=== PATIENT | female | born 1950 | race African-American/Black ===

== ENCOUNTER 2018-06-04 23:03 | Observation (INO) | payer MEDICARE, OTHER, SELFPAY ==
--- NOTE | 2018-06-04 00:35 | RAD_ITS ---
STUDY: X-RAY CHEST REASON FOR EXAM: Female, 67 years old. Altered level of consciousness TECHNIQUE: Single AP portable view of the chest. COMPARISON: None. FINDINGS: There is hyperinflation of the lungs consistent with chronic obstructive lung disease (COPD). There is no focal parenchymal abnormality. There is no demonstrated pleural abnormality. Normal size heart. Normal mediastinum and bindu. Normal visualized pulmonary arteries. Normal visualized aortic arch and descending thoracic aorta. Normal visualized thoracic spine. Normal visualized ribs, clavicles, and shoulders. There is no demonstrated abnormality of the visualized soft tissue structures of the upper abdomen. RAD/Chest 1 View (Portable) IMPRESSION: COPD. No pulmonary edema, congestive heart failure or confluent pneumonia. Electronically Signed: Sara Pérez MD at 0:54 EDT , Service support ,
[2018-06-04 23:08] VITALS: BP 142/63; PULSE 80; RESP 16; TEMP 36.8; O2SAT 99; BMI 23.5
--- NOTE | 2018-06-04 23:33 | ED.RN ---
S.O. WAS WITH PATIENT ON ARRIVAL TO HOSPITAL. PT WAS A MISSING PERSON IN [facility]. KYRIE ASNTIAGO IS ON HER WAY UP FROM [facility] TO SEE HER
--- NOTE | 2018-06-04 23:41 | CT_ITS ---
STUDY: CT BRAIN WITHOUT CONTRAST REASON FOR EXAM: Female, 67 years old. Altered mental status RADIATION DOSAGE (If Supplied By Facility): CTDIvol = ( 44.99 ) mGy, DLP = ( 812.98 ) mGycm TECHNIQUE: Transaxial CT imaging of the brain was performed without administration of intravenous contrast material. Individualized dose optimization techniques were used for this CT. COMPARISON: No relevant priors. FINDINGS: Normal soft tissue structures. Normal calvarium. There is mild cerebral atrophy with widening of the extra-axial spaces and ventricular dilatation. There are areas of decreased attenuation within the white matter tracts of the supratentorial brain, consistent with microvascular disease changes. Normal basal ganglia and thalami. Normal brainstem. Normal cerebellum. There is no intracranial hemorrhage. There are no findings of an acute ischemic infarction. Normal visualized paranasal sinuses. CT/Brain/Head without Contrast IMPRESSION: Chronic involutional changes of the brain. There is no acute intracranial pathology. Electronically Signed: Sara Pérez MD at 2:37 EDT , Service support ,
[2018-06-05 00:29] LABS: Mucous, Urine 0 SEEN /hpf (<or=2+); Red Blood Cells-Urine 0 SEEN /hpf (0-5)
[2018-06-05 00:33] LABS: Absolute Lymphocyte Count 1.76 X10^3/ul (0.83-4.51); Absolute Neutrophil Count 7.2 X10^3/uL (2.0-7.7); Basophil# 0.06 X10^3/uL; Basophil% 0.6 % (0-1); Eosinophil# 0.03 X10^3/uL; Eosinophils% 0.3 % (0-5); Hematocrit 45.3 % (37-47); Hemoglobin 14.7 g/dl (12.0-15.0); Lymphocyte # 1.76 X10^3/ul (4.0); Lymphocyte % 17.4 % (19-41); Mean Corp Hgb Conc 32.5 g/gl (32-36); Mean Corpuscular Hgb 29.6 pg (27.0-32.0); Mean Corpuscular Volume 91.3 fL (81-99); Mean Platelet Vol. 9.6 fl (6.2-12.0); Monocyte# 1.03 X10^3/uL; Monocyte% 10.2 % (0-10); Neutrophil # 7.19 X10^3/uL (2.7-7.7); Neutrophil % 70.9 % (47-70); Platelet Count 379 K/mm3 (150-450); RBC Distribution Width CV 13.5 % (11.6-14.6); RBC Distribution Width SD 44.5 fl (35.1-43.9); Red Blood Count 4.96 M/mm3 (4.2-5.4); White Blood Count 10.1 K/mm3 (4.4-11.0)
[2018-06-05 00:36] LABS: POSITIVE COUNT NO; POSITIVE DIFFERENTIAL NO; POSITIVE MORPHOLOGY NO
--- NOTE | 2018-06-05 00:36 | ED.RN ---
PT STATES SHE REFUSES A CT SCAN DUE TO NOT KNOWING IF INSURANCE WILL COVER IT SINCE SHE CANNOT PAY FOR IT. THE PT WAS INFORMED THAT IT WAS DETERMINED BY THE DOCTOR THAT SHE CANNOT MAKE HER OWN MEDICAL DECISIONS DUE TO THE SERIES OF EVENTS THAT TRANSPIRED IN THE LAST 3 DAYS. THE PHYSICIAN SPOKE WITH HER FAMILY AND NOTIFIED OF HER CONDITION.
[2018-06-05 00:41] LABS: Color, Urine Yellow (Yellow); Glucose, Dipstick 50 mg/dl (Normal); Ketone-Dipstick 50 mg/dl (Negative); Leukocyte Esterase-Dipstick 25 /ul (Negative); Nitrite-Dipstick Negative (Negative); Occult Blood-Urine Negative /ul (Negative); Protein-Dipstick 15 mg/dl (Negative); Specific Gravity, Urine 1.015 (1.002-1.030); Urine Bilirubin Dipstick Negative (Negative); Urine Clarity Clear (Clear); Urine Urobilinogen Normal (Normal)
[2018-06-05 00:46] LABS: Amphetamine Urine VISTA NEGATIVE (<1000 ng/mL); Barbiturate Urine VISTA NEGATIVE (< 200 ng/mL); Benzodiazepine Urine VISTA NEGATIVE (< 200 ng/mL); Cocaine Urine VISTA NEGATIVE (< 300 ng/mL); Ecstacy Urine VISTA NEGATIVE (< 500 ng/mL); Methadone Urine VISTA NEGATIVE (< 300 ng/mL); PCP Urine VISTA NEGATIVE (< 25 ng/mL); THC Urine VISTA NEGATIVE (< 50 ng/mL); Vista UDS pH Range 6
[2018-06-05 00:47] LABS: Bacteria RARE /hpf (None Seen); Squamous Epithelial Cells - UA 0-5 SEEN /hpf (5-10); White Blood Cells 0-5 SEEN /hpf (0-5)
[2018-06-05 00:52] LABS: ALB/GLOB Ratio 1.1 RATIO (0.9-2.4); AST(SGOT) 16 U/L (15-37); Alanine Aminotransfer ALT/SGPT 22 U/L (13-56); Albumin, Serum 4.1 g/dL (3.2-5.0); Alkaline Phosphatase 74 U/L (45-117); Anion Gap 6 (5-15); BUN 18 mg/dL (7-18); BUN/Creat Ratio 21.4 RATIO (10-20); Calcium,Total 9.2 mg/dL (8.5-10.1); Chloride 103 mmol/L (98-107); Creatinine, Serum 0.84 mg/dL (0.55-1.02); EST Glomerular Filtration Rate 71 mL/min (>60); Est Glom Filt Rate - Afr Amer 86 mL/min (>60); Estimated Creatinine Clearance 63.76 ml/min; Globulin 3.7 g/dL (2.2-4.2); Glucose 87 mg/dL (74-106); Potassium 3.8 mmol/L (3.5-5.1); Protein, Total 7.8 g/dL (6.4-8.2); Sodium Level 138 mmol/L (136-145)
[2018-06-05 00:53] LABS: Alcohol, Blood (Medical)-Serum < 3.0 mg/dL
--- NOTE | 2018-06-05 02:18 | ED.RN ---
THIS RN WAS INFORMED BY PHYSICIAN THAT THE NIECE IS NO LONGER COMING UP.
--- NOTE | 2018-06-05 02:51 | ED.DCSUM_ITS ---
- ER Visit Summary Date of Service: 06/05/18 Chief Complaint: Altered mental status History of Present Illness: The patient is a 67 F who presents with altered mental status. She was [place] in [place]. The car battery was . Per report she had been sitting in a car for at least 4 hours not responding normally. She does note that she is in [place]. She does not know how she got here. She was recently reported as a missing person. Apparently she had gone to [place] to visit her sister in a skilled nursing. She was witnessed Sunday evening in [place]. She was supposed to be at some training on Sunday but never showed up. The niece filed a missing person report today. Family also stated that she was seen in [place] in [place] today. The patient does not recall anything in the last couple of days. Family does report that this happened on one prior occasion. They also note that the patient received electroconvulsive therapy when she was about 18 years old but they are uncertain why. The patient denied any medical history or being on any daily medications. Physical Examination: Blood pressure 142/63 vitals otherwise normal Moist mucous membranes Heart regular rate and rhythm Lungs clear Abdomen soft Patient is alert, she is oriented to month year person and place. However she is unable to recall any recent events. She does not appear to have any focal or lateralizing neurological deficits Test Results: CBC CMP unremarkable. Urinalysis shows 25 leukocyte esterase, 50 glucose, 50 ketones. Alcohol negative. Urine drug screen negative. Chest x- ray shows no acute process. CT of the head shows chronic changes, no acute pathology. Emergency Department Course and Treatment: Patient was very adverse to any medical workup. I explained to her that given her confusion and amnesia I she would be a risk to herself if I allowed her to leave. She did agree to providing urine and allowing laboratory studies and chest x-ray. I spoke to family on the phone who provided most of the above information. I explained that in order to obtain test that I felt were medically necessary we may have to sedate the patient. Family agreed. Patient was given IV Ativan and taken for a CT of the head with results as above. The differential would include transient global amnesia although this is longer than I would expect with this pathology. I do feel the patient will require medical admission for further evaluation. Family is also concerned about development of dementia. Patient was discussed with the hospitalist and will be admitted. Treatment Plan: [] Disposition: Admit Impression: Altered mental status This note was generated with [employer] dictation software. It may contain incorrect words, spelling, and punctuation that were not noted in review of the chart prior to signing ED Disposition - Plan for ED Patient: Referrals: Care Physician,No Primary [Primary Care Provider] -
--- NOTE | 2018-06-05 02:51 | HP.PCM_ITS ---
Problem List (1) Transient global amnesia Status: Acute History of Present Illness Date of Admission: 06/05/18 Chief Complaint: amnesia History was taken from emergency department doctor as patient did not remember the events that led to her hospitalization. The patient is a 67 year old F with unknown medical history who was reported missing but was found at an [place] in [place], [place] with a car battery. Reportedly patient lives in [place]. She left [place] to visit her sister in [place]. She was supposed to be [facility] the [facility] for a training a day before presentation but she did not show up for the training. Patient was reported missing. She was found at one point at a rest stop; at that time she was tired and was taking a nap. She was also found at [place]. Finally she was found at an [place] field in [facility] as stated above. At emergency department after some persuasion patient gave blood and urine for test. Her CMP was unremarkable and her urinalysis was also unremarkable. Her ethanol level was unremarkable. Also, her urine drug screen was also unremarkable. She was given Ativan for a CT scan of her head. Her CT scan did not show any acute pathology. Emergency Department doctor reported that patient's niece reported patient had a previous episode of forgetfulness similar to what happened with this presentation. Also, reportedly , in the past she had had a treatment with electroconvulsive therapy. However on examination patient denies ever having treatment with electroconvulsive therapy. Emergency Department doctor reported taking history from her niece, Artis Neumann ([phone]). Information for her car can be found by contacting [facility], [address] [place] [address] ([phone]). Past Medical History Medical History: Medical History (Last Updated 06/05/18 @ 03:35 by Julio Cesar Whelan MD) Patient denies any medical history Allergies No Known Allergies Allergy (Verified 06/04/18 23:04) Home Medications: Ambulatory Orders Medication Instructions Recorded NK 06/04/18 Surgical History: total hip arthroplasty - bilateral, - Lives: Alone Smoking Status: Never smoker Alcohol: None - *Family History Maternal History Items: Cancer, Diabetes Paternal History Items: Cancer - prostate Review of Systems Constitutional: Denies: Chills, Fever, Weight Change HEENT: Denies: Head Aches, Sinus Congestion, Sinus Drainage Cardiovascular: Denies: Chest Pain, Palpitations Respiratory: Denies: Cough, Shortness of breath at rest, Sputum production Gastrointestinal: Denies: Abdominal Pain, Nausea, Vomiting Genitourinary: Denies: Dysuria Musculoskeletal: Denies: Joint Pain, Joint Tenderness Skin: Denies: Rash, Wounds Neurological: Reports: Confusion. Denies: Focal weakness, Numbness, Tingling Psychiatric: Denies: Anxiety, Depression, Homicidal Ideations, Suicidal Ideations Hematologic/ Lymphatic: Denies: Easy Bruising, Easy Bleeding VTE Information - Inpt Only VTE Present on Admission: No VTE Mechan Device Prophylaxis: None VTE Pharm Prophylaxis ordered?: Yes Patient Problems: Active and Suspected Problems (Last Updated 06/05/18 @ 03:35 by Julio Cesar Whelan MD) Transient global amnesia (Acute) - Physical Exam General: Alert, Oriented x3, Cooperative HEENT: Atraumatic, PERRLA, EOMI, Normocephalic Neck: Supple, No JVD, Negative Carotid Bruits Lungs: Clear to auscultation, Normal air movement Cardiovascular: Regular rate, No murmurs Abdomen: Bowel Sounds Present, Soft, Non Tender Extremities: No edema, Capillary Refill Less than 3 Seconds Skin: No rashes, No breakdown Musculoskeletal: No Tenderness to Palpation of Joints or Extremities Neurological: Neuro grossly intact, - - She does not remember events leading to hospitalization. She knows that she lives at [facility]; and she is in [place] now. Psych/Mental Status: Normal Affect, Appropriate Vital Signs Temp Pulse Resp BP Pulse Ox 98.2 F 80 16 142/63 H 99 06/04/18 23:08 06/04/18 23:08 06/04/18 23:08 06/04/18 23:08 06/04/18 23:08 Oxygen Delivery Method Room Air Weight: 70.125 kg Body Mass Index (BMI) 23.5 Laboratory Tests Past 24 Hrs 06/05/18 06/05/18 06/05/18 00:15 00:15 00:22 WBC 10.1 RBC 4.96 Hgb 14.7 Hct 45.3 MCV 91.3 MCH 29.6 MCHC 32.5 RDW 13.5 RDW Differential 44.5 H Plt Count 379 MPV 9.6 Immature Gran % (Auto) 0.600 Neut % (Auto) 70.9 H Lymph % (Auto) 17.4 L Riley % (Auto) 10.2 H Eos % (Auto) 0.3 Baso % (Auto) 0.6 Absolute Neuts (auto) 7.2 Absolute Lymphs (auto) 1.76 Total Counted Not Reportable Sodium Potassium Chloride Carbon Dioxide Anion Gap BUN Creatinine Estim Creat Clear Calc Est GFR (MDRD) Af Amer Est GFR (MDRD) Non-Af BUN/Creatinine Ratio Glucose Calcium Total Bilirubin AST ALT Alkaline Phosphatase Total Protein Albumin Globulin Albumin/Globulin Ratio Urine Color Yellow Urine Clarity Clear Urine pH 6.0 Ur Specific [place] 1.015 Urine Protein 15 H Urine Glucose (UA) 50 H Urine Ketones 50 H Urine Occult Blood Negative Urine Nitrite Negative Urine Bilirubin Negative Urine Urobilinogen Normal Ur Leukocyte Esterase 25 H Urine RBC 0 SEEN Urine WBC 0-5 SEEN Ur Squamous Epith Cells 0-5 SEEN Urine Bacteria RARE Urine Mucus 0 SEEN Urine Opiates Screen NEGATIVE Urine Methadone Screen NEGATIVE Ur Barbiturates Screen NEGATIVE Ur Phencyclidine Scrn NEGATIVE Ur Amphetamines Screen NEGATIVE U Methamphetamin-MDMA NEGATIVE U Benzodiazepines Scrn NEGATIVE Urine Cocaine Screen NEGATIVE U Cannabinoids Screen NEGATIVE Ur Drug Screen Comment Ethyl Alcohol 06/05/18 06/05/18 00:22 00:22 WBC RBC Hgb Hct MCV MCH MCHC RDW RDW Differential Plt Count MPV Immature Gran % (Auto) Neut % (Auto) Lymph % (Auto) Riley % (Auto) Eos % (Auto) Baso % (Auto) Absolute Neuts (auto) Absolute Lymphs (auto) Total Counted Sodium 138 Potassium 3.8 Chloride 103 Carbon Dioxide 29.0 Anion Gap 6 BUN 18 Creatinine 0.84 Estim Creat Clear Calc 63.76 Est GFR (MDRD) Af Amer 86 Est GFR (MDRD) Non-Af 71 BUN/Creatinine Ratio 21.4 H Glucose 87 Calcium 9.2 Total Bilirubin 0.50 AST 16 ALT 22 Alkaline Phosphatase 74 Total Protein 7.8 Albumin 4.1 Globulin 3.7 Albumin/Globulin Ratio 1.1 Urine Color Urine Clarity Urine pH Ur Specific [place] Urine Protein Urine Glucose (UA) Urine Ketones Urine Occult Blood Urine Nitrite Urine Bilirubin Urine Urobilinogen Ur Leukocyte Esterase Urine RBC Urine WBC Ur Squamous Epith Cells Urine Bacteria Urine Mucus Urine Opiates Screen Urine Methadone Screen Ur Barbiturates Screen Ur Phencyclidine Scrn Ur Amphetamines Screen U Methamphetamin-MDMA U Benzodiazepines Scrn Urine Cocaine Screen U Cannabinoids Screen Ur Drug Screen Comment Ethyl Alcohol < 3.0 Assessment/Plan All Active Problems (Last Updated 06/05/18 @ 03:35 by Julio Cesar Whelan MD) Transient global amnesia (Acute) The patient is a 67 year old F with unknown medical history who was reported missing but was found at an [place] in [place] in a car with a battery; and does not remember the events leading to her hospitalization consistent with likely Transient global amnesia. Probable Transient global amnesia. At the time of evaluation patient was alert and oriented. She knew the month of the year and she was 1-2 days remote from the actual date. She was concerned about the hospital bill. Will order vitamin B12, TSH and ammonia level. CT of the head did not show any acute pathology. Will order MRI. Will consult neurology. We will consult case management for financial planning. DVT prophylaxis Subcutaneous Lovenox. Code status: Did not want to be a full code but because of recent amnesia discuss with patient that she will be a full code for now. Code Visit OBSV E&M: 84128 Initial observation care L3
[2018-06-05 03:51] VITALS: BMI 21.5
[2018-06-05 03:52] VITALS: BP 145/69; PULSE 80; RESP 16; TEMP 36.6; O2SAT 100
[2018-06-05 03:59] VITALS: BMI 21.6
[2018-06-05 06:01] LABS: Thyroid Stim Hormone (TSH) 1.13 uIU/mL (0.358-3.74)
[2018-06-05 08:46] LABS: Vitamin B12 1485 pg/mL (211-911)
--- NOTE | 2018-06-05 08:54 | NURSING ---
Called down to MRI regarding patient. Alerted staff that she was not alert or oriented. She is a poor historian. Was recently reported as missing and is from [place]. She is not able to provide with me with any other family members who may have information about her. The only person I know of is a niece who does not have any medical history for patient. I will not be able to complete the MRI questionnaire based on these conditions. Maria Eugenia in MRI states that if the patient will consent to a single view abdomen x-ray then they would be able to clear her for MRI. this RN states she will ask patient about this. Dr. Daniel was back to see patient and he states that she is not willing to do any more testing at this time. MRI called and notified of same.
--- NOTE | 2018-06-05 09:34 | PCM.PN.BLA ---
Progress Note This is a 67 years old female patient who was reported missing and found in in an oil field in [place]. She lives in [facility]. She was admitted for probable transient amnesia for evaluation. This morning, patient is fully awake and alert. She does not respond to questions about her name, date of , her address or today's date. When I asked her other questions, she speaks fluently and coherently. I informed the patient that we are going to do an MRI brain today but she thinks that MRI is not necessary as CAT scan brain was normal. She states that she does not want to do any more testing. Her physical examination was unremarkable. Her vital signs are stable. Routine blood work was unremarkable. LFT and ammonia were normal. TSH was normal. Vitamin B12 was elevated. Urinalysis showed no acute cystitis. Urine drug screen was negative. Blood alcohol level was less than 3. Chest x-ray showed no acute findings. CT scan brain was normal. MRI brain ordered and neurology consulted. Patient was pink slipped.
[2018-06-05 09:45] VITALS: BP 130/57; PULSE 95; RESP 18; TEMP 36.7; O2SAT 100
--- NOTE | 2018-06-05 10:36 | NURSING ---
In to assess patient's vs at this time. This RN sat in chair and told her that there was one more doctor who was scheduled to see her. I told her We are waiting on Dr. Rawls who is a neurology doctor. She started shake her head and attempted to remove the BP cuff. She got oob and stood to look out the window. This RN asked her if everything was ok and she states, I don't need all of this. She started to walk towards the doorway. This RN followed her and called battery charger as patient was starting to clench fist and appeared to be becoming increasingly agitated. She stood outside her doorway and battery charger arrived. Multiple attempts to get patient back into her room to sit in chair or on the bed. She refused by shaking her head. She does not answer any questions. All she is doing is wandering in the johnson and leaning on ruiz. She started to take off her IV dressing. this RN got gauze and tape to remove IV safely. She states that we are, setting her up for something she didn't do. This RN remains standing outside of room with patient to ensure safety. About ten minutes later MARCI Collins arrives to relieve this RN. MARCI Collins with patient now to ensure safety.
--- NOTE | 2018-06-05 11:05 | NURSING ---
Patient and MARCI Collins remain standing in hallway. Offered patient a chair to sit in and she refused.
--- NOTE | 2018-06-05 11:54 | PCM.CONS.GEN ---
Reason for Consult Date of Consultation: 06/05/18 Reason for Consultation: confusion History of Present Illness: The patient is a 67 year old F currently refusing exam. asks me why i am here which i attempted to explain, wont answer other questions. history as below. nods no to all quetions/ per progress note:This is a 67 years old female patient who was reported missing and found in in an oil field in [place]. She lives in [facility]. She was admitted for probable transient amnesia for evaluation. This morning, patient is fully awake and alert. She does not respond to questions about her name, date of , her address or today's date. When I asked her other questions, she speaks fluently and coherently. I informed the patient that we are going to do an MRI brain today but she thinks that MRI is not necessary as CAT scan brain was normal. She states that she does not want to do any more testing. Her physical examination was unremarkable. Her vital signs are stable. Routine blood work was unremarkable. LFT and ammonia were normal. TSH was normal. Vitamin B12 was elevated. Urinalysis showed no acute cystitis. Urine drug screen was negative. Blood alcohol level was less than 3. Chest x-ray showed no acute findings. CT scan brain was normal. MRI brain ordered and neurology consulted. Patient was pink slipped. Past Medical History Medical History: Medical History (Last Updated 06/05/18 @ 03:35 by Julio Cesar Whelan MD) Patient denies any medical history Allergies No Known Allergies Allergy (Verified 06/04/18 23:04) Home Medications: Ambulatory Orders Medication Instructions Recorded NK 06/04/18 Surgical History: total hip arthroplasty - bilateral, - Lives: Alone Smoking Status: Never smoker Alcohol: None - *Family History Maternal History Items: Cancer, Diabetes Paternal History Items: Cancer - prostate Patient Problems: Active and Suspected Problems (Last Updated 06/05/18 @ 03:35 by Julio Cesar Whelan MD) Transient global amnesia (Acute) Objective: awake, alert responds to questions with head nod no or why is that? i want to know why they think something is wrong with me observed to ambulate normally, normal language flat affect - Physical Exam Vital Signs Temp Pulse Resp BP Pulse Ox 36.7 C 95 18 130/57 H 100 06/05/18 09:45 06/05/18 09:45 06/05/18 09:45 06/05/18 09:45 06/05/18 09:45 Oxygen Delivery Method Room Air Weight: 65.3 kg Body Mass Index (BMI) 21.5 Laboratory Tests Past 24 Hrs 06/05/18 06/05/18 06/05/18 00:15 00:15 00:22 WBC 10.1 RBC 4.96 Hgb 14.7 Hct 45.3 MCV 91.3 MCH 29.6 MCHC 32.5 RDW 13.5 RDW Differential 44.5 H Plt Count 379 MPV 9.6 Immature Gran % (Auto) 0.600 Neut % (Auto) 70.9 H Lymph % (Auto) 17.4 L Towns % (Auto) 10.2 H Eos % (Auto) 0.3 Baso % (Auto) 0.6 Absolute Neuts (auto) 7.2 Absolute Lymphs (auto) 1.76 Total Counted Not Reportable Sodium Potassium Chloride Carbon Dioxide Anion Gap BUN Creatinine Estim Creat Clear Calc Est GFR (MDRD) Af Amer Est GFR (MDRD) Non-Af BUN/Creatinine Ratio Glucose Calcium Total Bilirubin AST ALT Alkaline Phosphatase Ammonia Total Protein Albumin Globulin Albumin/Globulin Ratio Vitamin B12 TSH Urine Color Yellow Urine Clarity Clear Urine pH 6.0 Ur Specific [place] 1.015 Urine Protein 15 H Urine Glucose (UA) 50 H Urine Ketones 50 H Urine Occult Blood Negative Urine Nitrite Negative Urine Bilirubin Negative Urine Urobilinogen Normal Ur Leukocyte Esterase 25 H Urine RBC 0 SEEN Urine WBC 0-5 SEEN Ur Squamous Epith Cells 0-5 SEEN Urine Bacteria RARE Urine Mucus 0 SEEN Urine Opiates Screen NEGATIVE Urine Methadone Screen NEGATIVE Ur Barbiturates Screen NEGATIVE Ur Phencyclidine Scrn NEGATIVE Ur Amphetamines Screen NEGATIVE U Methamphetamin-MDMA NEGATIVE U Benzodiazepines Scrn NEGATIVE Urine Cocaine Screen NEGATIVE U Cannabinoids Screen NEGATIVE Ur Drug Screen Comment Ethyl Alcohol 06/05/18 06/05/18 06/05/18 00:22 00:22 05:04 WBC RBC Hgb Hct MCV MCH MCHC RDW RDW Differential Plt Count MPV Immature Gran % (Auto) Neut % (Auto) Lymph % (Auto) Towns % (Auto) Eos % (Auto) Baso % (Auto) Absolute Neuts (auto) Absolute Lymphs (auto) Total Counted Sodium 138 Potassium 3.8 Chloride 103 Carbon Dioxide 29.0 Anion Gap 6 BUN 18 Creatinine 0.84 Estim Creat Clear Calc 63.76 Est GFR (MDRD) Af Amer 86 Est GFR (MDRD) Non-Af 71 BUN/Creatinine Ratio 21.4 H Glucose 87 Calcium 9.2 Total Bilirubin 0.50 AST 16 ALT 22 Alkaline Phosphatase 74 Ammonia 15.0 Total Protein 7.8 Albumin 4.1 Globulin 3.7 Albumin/Globulin Ratio 1.1 Vitamin B12 TSH Urine Color Urine Clarity Urine pH Ur Specific [place] Urine Protein Urine Glucose (UA) Urine Ketones Urine Occult Blood Urine Nitrite Urine Bilirubin Urine Urobilinogen Ur Leukocyte Esterase Urine RBC Urine WBC Ur Squamous Epith Cells Urine Bacteria Urine Mucus Urine Opiates Screen Urine Methadone Screen Ur Barbiturates Screen Ur Phencyclidine Scrn Ur Amphetamines Screen U Methamphetamin-MDMA U Benzodiazepines Scrn Urine Cocaine Screen U Cannabinoids Screen Ur Drug Screen Comment Ethyl Alcohol < 3.0 06/05/18 06/05/18 05:04 05:04 WBC RBC Hgb Hct MCV MCH MCHC RDW RDW Differential Plt Count MPV Immature Gran % (Auto) Neut % (Auto) Lymph % (Auto) Towns % (Auto) Eos % (Auto) Baso % (Auto) Absolute Neuts (auto) Absolute Lymphs (auto) Total Counted Sodium Potassium Chloride Carbon Dioxide Anion Gap BUN Creatinine Estim Creat Clear Calc Est GFR (MDRD) Af Amer Est GFR (MDRD) Non-Af BUN/Creatinine Ratio Glucose Calcium Total Bilirubin AST ALT Alkaline Phosphatase Ammonia Total Protein Albumin Globulin Albumin/Globulin Ratio Vitamin B12 1485 H TSH 1.13 Urine Color Urine Clarity Urine pH Ur Specific [place] Urine Protein Urine Glucose (UA) Urine Ketones Urine Occult Blood Urine Nitrite Urine Bilirubin Urine Urobilinogen Ur Leukocyte Esterase Urine RBC Urine WBC Ur Squamous Epith Cells Urine Bacteria Urine Mucus Urine Opiates Screen Urine Methadone Screen Ur Barbiturates Screen Ur Phencyclidine Scrn Ur Amphetamines Screen U Methamphetamin-MDMA U Benzodiazepines Scrn Urine Cocaine Screen U Cannabinoids Screen Ur Drug Screen Comment Ethyl Alcohol ct reviewed, normal Assessment/Plan All Active Problems (Last Updated 06/05/18 @ 03:35 by Julio Cesar Whelan MD) Transient global amnesia (Acute) confusion: limited exam unremarkeable except for flat affect, not consistent with TGA. actively resists and opposes exam and history. suspect psychiatric cause, mri if patient aggrees. no further recommendation, please call if needed
--- NOTE | 2018-06-05 13:01 | CASEMGMT ---
Pt is to be seen by neurology. Should pt be cleared by neurology, crisis will need consulted to see if pt needs rajiv-psych placement. AN Sutherland, FOOD SAFETY MANAGER
--- NOTE | 2018-06-05 13:36 | NURSING ---
Friend of patient just arrived. Her name is Maricarmen. This RN in when friend entered room. there was no reaction from patient. Maricarmen gave patient a hug and still no reaction. flat affect. will monitor.
--- NOTE | 2018-06-05 13:48 | CASEMGMT ---
Pt has been cleared by neurology. SW called crisis, message left for Ann in crisis at [facility] that pt needs seen. SW asked her to call the nursing station directly with a time crisis may be here if this SW has left, let her know this SW leaving at 2:30pm. AN Sutherland
--- NOTE | 2018-06-05 14:38 | NURSING ---
Patient's friend Maricarmen, came out to nurses' station and asked if the patient was medicated at all. She states that this is not her whatsoever. She is usually very alert and with it and bright. She and Maricarmen travel together. She states they were in [place] about three weeks ago. Maricarmen reports that patient is a very healthy eater and watches her sugar intake. She exercises often. Maricarmen getting tearful while speaking about patient. support given. Will update MD regarding recent travel out of country.
--- NOTE | 2018-06-05 16:04 | NURSING ---
Called down to ED to find out if someone from Crisis was available to see patient. Iveth in ED directs me to Ann, a clean up worker, who states she was not aware of the consult. This RN states that Eden called around 1400 to notify of consult for patient to be seen. this RN gave brief history regarding patient. Ann states that she will take this info back to the office and pass along to next worker in as it is almost the end of her shift. will continue to await a crisis assessment.
--- NOTE | 2018-06-05 18:30 | NURSING ---
Patient's family from [place] arrived.
--- NOTE | 2018-06-05 18:45 | NURSING ---
upkeep worker in to see patient.
--- NOTE | 2018-06-05 23:30 | NURSING ---
[facility] returning call. Pt was not accepted. Notified Tatyana from Crisis.
--- NOTE | 2018-06-06 03:12 | PCM.PN.BLA ---
Progress Note Received a page that patient is entering other patients' room; and is uncooperative with care. Per nurse patient stated that staff works for the [employer] and she is at laboratory at this time. Per nurse, security is helping to maintain order. Acute psychosis Haldol 2 mg IM ordered.
--- NOTE | 2018-06-06 03:36 | NURSING ---
AT 0225 THIS NURSE OBSERVED PT PACING AT THE EDGE OF HER DOORWAY. THIS NURSE WAS CHARTING AT THE BACK NURSES' STATION WHEN PT CHARGED OUT OF HER ROOM BEHIND THE NURSES' STATION. PT STATED, I KNOW WHAT YOU ALL ARE DOING. YOU WORK FOR THE [employer] AND YOU'RE SETTING ME UP. PT THEN PRECEDED TO CHARGE INTO ANOTHER PT'S ROOM. THIS NURSE ADVISED PT THAT SHE COULD NOT ENTER OTHER PT ROOMS AND THAT SHE NEEDED TO GO BACK TO HER ROOM IN 213. PT'S FRIEND, STEPHANY, ATTEMPTED TO ASSIST IN GETTING PT TO RETURN TO HER ROOM AND TO NOT ENTER OTHER PT ROOMS WELL. THIS NURSE WAS ABLE TO REMOVE PT FROM ROOM 214. PT REFUSED TO RETURN TO HER ROOM AND WAS BECOMING INCREASINGLY AGITATED. THIS NURSE OFFERED PT WATER, SNACK, AND OFFERED TO HELP HER BACK TO HER ROOM SO SHE COULD REST. PT CONTINUED TO PUSH PAST THIS NURSE AND PROCEEDED TO WALK BEHIND THE NURSES' STATION. PT STATED, I'M NOT GOING BACK INTO THAT LABORATORY IN THERE. I KNOW YOU GUYS HAVING CAMERAS IN THERE AND YOU'RE WATCHING ME AND SETTING ME UP FOR SOMETHING I DIDN'T DO. PT WAS REASSURED MULTIPLE TIMES THAT SHE WAS IN A HOSPITAL, WE WERE MEDICAL STAFF, AND NO ONE WAS SETTING HER UP. WE ARE HERE TO HELP HER. PT CONTINUED TO WALK BEHIND THE NURSES' STATION AND IN HALLWAY OUTSIDE OF OTHER PT ROOMS. KARYN PAULA RN WAS NOTIFIED, WELL SECURITY. ALL INVOLVED ATTEMPTED TO DE-ESCALATE PT MULTIPLE TIMES, REORIENTED PT, AND REASSURED PT WE WERE ALL HERE TO HELP HER AND WANTED HER TO BE SAFE. PT CONTINUED PUSHING PAST STAFF AND STATING SHE WOULD NOT BE LEAVING THE HALLS OR THE NURSES' STATION. DR COOPER NOTIFIED @ 0309 OF PT'S BEHAVIOR. X1 STAT DOSE OF 2MG HALDOL ORDERED. KAILEY MURPHY HOTEL HOUSEMAN NOTIFIED OF SITUATION, SHE ATTEMPTED TO GET PT TO RETURN TO HER ROOM, BUT PT CONTINUED TO REFUSE. MULTIPLE STAFF MEMBERS REQUIRED TO ASSIST PT BACK TO HER ROOM, AND STAT DOSE OF HALDOL GIVEN @ 0332. PT WAS OBSERVED NODDING OFF IN CHAIR @ 0350 AND WAS AGREEABLE TO MOVE TO RECLINER IN ROOM. PT RESTING COMFORTABLY. WILL CONTINUE TO MONITOR.
[2018-06-06] MEDS: Haloperidol Lactate 5 MG/ML Vial 2 MG IM (03:55)
--- NOTE | 2018-06-06 10:04 | CASEMGMT ---
Addendum entered by Eden Edouard 06/06/18 13:14: SW has not heard back from [facility]. SW spoke w/Maddie at [facility], suggested it may be time to start working on other facilities for pt. She will do so. RANDEE gave her the other SW contact information as this SW will be leaving for the day. AN Sutherland Original Note: Addendum entered by Eden Edouard 06/06/18 12:30: SW spoke w/Danyelle from [facility], she states the psychiatrist thinks pt has a UTI based on the lab for leukocyte esterase as 25. SW spoke w/physician, he states pt does not have UTI, states she is not delirious, which is what happens with a UTI. He is willing to speak w/psychiatrist at the hospital in regard to this. SW called Danyelle back from [facility], let her know physician is stating pt does not have a UTI, would like to speak w/the psychiatrist. She will speak w/psychiatrist and let SW know if he will speak w/our physician. She also states there is no documentation of this happening in the past, SW did point out that as per family, this did happen once prior. RANDEE called Maddie at [facility] and updated her on the above information. SW will let her know if RANDEE hears back from [facility], or if she may need to try other facilities for pt. So far they have only tried two facilities, Maddie confirmed this. SW will continue to follow. AN Sutherland Original Note: Addendum entered by Eden Edouard 06/06/18 10:43: Maddie left a message stating [facility] is reconsidering taking pt, she will let this SW know. AN Sutherland Original Note: RANDEE called Maddie with crisis at [facility] to follow up. SW let her know [facility] did not take pt, Maddie is going to call to find out why. RANDEE also let her know family had been asking RN about pt going somewhere close to [place], asked Maddie to follow up w/pt's family. RANDEE faxed her RN note from this morning in regard to pt. Maddie to let this SW know about placement for pt. AN Sutherland
[2018-06-06 10:10] VITALS: BP 142/71; PULSE 80; RESP 16; TEMP 36.7; O2SAT 96
--- NOTE | 2018-06-06 11:52 | PCM.PROGNOTE ---
Patient Problems: Active and Suspected Problems (Last Updated 06/05/18 @ 03:35 by Julio Cesar Whelan MD) Transient global amnesia (Suspected) Subjective: Chief complaint: Follow-up after admission for probable acute psychosis. Patient seen and examined. Overnight, patient has been entering other patient's rooms, was very uncooperative. She was given 2 mg of IM Haldol and she was able to sleep for couple of hours. According to nursing staff, patient has been awake since admission. Again today, she is not interested in talking about her name, her address. She was able to say a few words when I asked her about symptoms. Patient's friend was at the bedside and she mentioned that the patient has been having issues with sleeping problems for the last year. Usually, she is very careful, taking care of herself but the friend mentioned that she is a different person now. She looks in acute psychosis at this time. Her vital signs are stable. - Physical Exam General: Alert, Cooperative, No apparent distress, - - Flat affect. HEENT: Atraumatic, PERRLA, EOMI, Normocephalic Oral: Moist Mucosa, No Gingival or Mucosal Lesions/ Ulcerations Neck: Supple, No JVD, Negative Carotid Bruits, Trachea Midline, Thyroid Normal Size and Texture Lungs: Clear to auscultation, Normal air movement, No rhonchi, No wheeze, No rales Cardiovascular: Regular rate, Regular Rhythm, Normal S1, Normal S2, PMI Normal Abdomen: Bowel Sounds Present, Soft, Non Tender, Non-Distended, No Hepato-splenomegaly Extremities: No clubbing, No cyanosis, No edema Skin: No rashes, No breakdown Lymphatic: No Cervical, Supraclavicular, or Inguinal Adenopathy Neurological: Cranial nerves II-XII grossly intact, Motor Exam 5/5 strength throughout Psych/Mental Status: Flat Affect, Depressed Vital Signs Temp Pulse Resp BP Pulse Ox 98.1 F 95 18 130/57 H 100 06/05/18 09:45 06/05/18 09:45 06/05/18 09:45 06/05/18 09:45 06/05/18 09:45 Oxygen Delivery Method Room Air Weight: 143 lb 15.39 oz Body Mass Index (BMI) 21.5 Intake and Output for Last 24 Hours 06/04/18 06/05/18 06/06/18 23:59 23:59 23:59 Intake Total 150 / 150 0 / 0 Output Total 0 / 0 Balance 150 / 150 0 / 0 Clinical Impression(s) from Imaging Studies Chest X-Ray 06/04/18 00:35 IMPRESSION: COPD. No pulmonary edema, congestive heart failure or confluent pneumonia. Electronically Signed: Sara Pérez MD at 0:54 EDT , Service support , Brain CT 06/04/18 23:41 IMPRESSION: Chronic involutional changes of the brain. There is no acute intracranial pathology. Electronically Signed: Sara Pérez MD at 2:37 EDT , Service support , Medical Necessity - Tobacco Use Smoking Status: Never smoker Assessment/Plan This is a 67 years old female patient who was reported missing from [place], found in an Oil field in [place]. Initially, the working differential diagnosis is transient global amnesia and she was found to be in acute psychosis. #1 amnesia/confusion/Probable acute psychosis: CT scan brain showed no acute findings. Chest x-ray, EKG and routine blood work was unremarkable. Patient has no focal deficit on physical examination. Urine drug screen was negative. Blood alcohol level was less than 3. LFT, ammonia, vitamin B12 and TSH were normal. Chest x-ray showed no acute findings. MRI ordered but patient refused. Neurology consulted who also recommended MRI but again patient refused. Patient was evaluated by mental health crisis and recommended inpatient admission to psychiatric facility. Awaiting bed availability at psychiatric facility for treatment of probable acute psychosis. #2 DVT prophylaxis: Subcu Lovenox. This note was generated with [employer] dictation software. It may contain incorrect words, spelling, and punctuation that were not noted in checking the note before signing. Code Visit OBSV E&M: 64966 Subsequent observation care L2
--- NOTE | 2018-06-06 11:55 | PN_ITS ---
Patient Problems: Active and Suspected Problems (Last Updated 06/05/18 @ 03:35 by Julio Cesar Whelan MD) Transient global amnesia (Suspected) Subjective: Chief complaint: Follow-up after admission for probable acute psychosis. Patient seen and examined. Overnight, patient has been entering other patient's rooms, was very uncooperative. She was given 2 mg of IM Haldol and she was able to sleep for couple of hours. According to nursing staff, patient has been awake since admission. Again today, she is not interested in talking about her name, her address. She was able to say a few words when I asked her about symptoms. Patient's friend was at the bedside and she mentioned that the patient has been having issues with sleeping problems for the last year. Usually, she is very careful, taking care of herself but the friend mentioned that she is a different person now. She looks in acute psychosis at this time. Her vital signs are stable. - Physical Exam General: Alert, Cooperative, No apparent distress, - - Flat affect. HEENT: Atraumatic, PERRLA, EOMI, Normocephalic Oral: Moist Mucosa, No Gingival or Mucosal Lesions/ Ulcerations Neck: Supple, No JVD, Negative Carotid Bruits, Trachea Midline, Thyroid Normal Size and Texture Lungs: Clear to auscultation, Normal air movement, No rhonchi, No wheeze, No rales Cardiovascular: Regular rate, Regular Rhythm, Normal S1, Normal S2, PMI Normal Abdomen: Bowel Sounds Present, Soft, Non Tender, Non-Distended, No Hepato- splenomegaly Extremities: No clubbing, No cyanosis, No edema Skin: No rashes, No breakdown Lymphatic: No Cervical, Supraclavicular, or Inguinal Adenopathy Neurological: Cranial nerves II-XII grossly intact, Motor Exam 5/5 strength throughout Psych/Mental Status: Flat Affect, Depressed Vital Signs Temp Pulse Resp BP Pulse Ox 98.1 F 95 18 130/57 H 100 06/05/18 09:45 06/05/18 09:45 06/05/18 09:45 06/05/18 09:45 06/05/18 09:45 Oxygen Delivery Method Room Air Weight: 143 lb 15.39 oz Body Mass Index (BMI) 21.5 Intake and Output for Last 24 Hours 06/04/18 06/05/18 06/06/18 23:59 23:59 23:59 Intake Total 150 / 150 0 / 0 Output Total 0 / 0 Balance 150 / 150 0 / 0 Clinical Impression(s) from Imaging Studies Chest X-Ray 06/04/18 00:35 IMPRESSION: COPD. No pulmonary edema, congestive heart failure or confluent pneumonia. Electronically Signed: Sara Pérez MD at 0:54 EDT , Service support , Brain CT 06/04/18 23:41 IMPRESSION: Chronic involutional changes of the brain. There is no acute intracranial pathology. Electronically Signed: Sara Pérez MD at 2:37 EDT , Service support , Medical Necessity - Tobacco Use Smoking Status: Never smoker Assessment/Plan This is a 67 years old female patient who was reported missing from [place], found in an Oil field in [place]. Initially, the working differential diagnosis is transient global amnesia and she was found to be in acute psychosis. #1 amnesia/confusion/Probable acute psychosis: CT scan brain showed no acute findings. Chest x-ray, EKG and routine blood work was unremarkable. Patient has no focal deficit on physical examination. Urine drug screen was negative. Blood alcohol level was less than 3. LFT, ammonia, vitamin B12 and TSH were normal. Chest x-ray showed no acute findings. MRI ordered but patient refused. Neurology consulted who also recommended MRI but again patient refused. Patient was evaluated by mental health crisis and recommended inpatient admission to psychiatric facility. Awaiting bed availability at psychiatric facility for treatment of probable acute psychosis. #2 DVT prophylaxis: Subcu Lovenox. This note was generated with [employer] dictation software. It may contain incorrect words, spelling, and punctuation that were not noted in checking the note before signing. Code Visit OBSV E&M: 88639 Subsequent observation care L2
--- NOTE | 2018-06-06 15:00 | CHAPLAIN ---
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
--- NOTE | 2018-06-06 15:27 | NURSING ---
Maddie with crisis called with update regarding discharge plans. referral sent to [facility] at this time. awaiting to here back from facility.
--- NOTE | 2018-06-06 19:59 | NURSING ---
Nadiya from Crisis called to let this nurse know she is taking over till 10AM. Phone number is [phone].
[2018-06-06 21:30] VITALS: BP 131/61; PULSE 86; RESP 16; TEMP 36.8; O2SAT 100
--- NOTE | 2018-06-06 21:51 | NURSING ---
Addendum entered by Deedee Carter 06/06/18 21:54: [facility] referral line in [place], [place] Original Note: Michael from [facility] in [place] called to give [facility] referral line number in case we need to get in touch with them.
--- NOTE | 2018-06-07 06:47 | NURSING ---
Let Pt sleep through night, went in to get vitals and do assessment. Woke Pt up and she refused vitals and assessment. Pt friend Maricarmen is in the room and said maybe when she is more awake she will let them do assessment.
--- NOTE | 2018-06-07 09:08 | CASEMGMT ---
Social Work Note RANDEE updated by charge Nurse that [facility] gave away last female bed last night and unable to accept pt. RANDEE also updated that pt's niece Anselmo would like information on how to get temporary emergency custody process for pt. RANDEE placed a call to crisis center and was informed Tatyana will be working on pt's case today. Tatyana provided extension [id number] and cell phone number [phone]. RANDEE informed Tatyana that [facility] gave away last bed and pt will need new facility and that pt needs to be placed today as medically pt is ready for discharged. Tatyana states she will work on finding new facility for pt. RANDEE placed a call to pt's nivalentine Caspauline. RANDEE informed Elle that she will need to call [facility] in regards to guardianship and RANDEE provided number [phone]. RANDEE informed Elle that this worker received message from [facility] that they gave away last female bed last night and unable to accept pt. Elle [facility] about [facility] [place]. RANDEE explained that pt needs psychiatric hospital at this time and isn't sure if [facility] but that this worker can call Crisis who is working on placement for pt and ask them to look into [facility] [place]. Elle states understanding, asked how long pt will be at [facility]. RANDEE explained that this worker didn't know and that once pt goes to hospital, she will need to follow up with the hospital in regards to pt's treatment. RANDEE received call from Barbara in admissions at [facility] in [place]. Barbara states that their facility is only one that will accept pink slip and they don't have any female beds. Barbara states that pt's javier Almeida had informed Barbara that pt is alert and orientated, able to make own decisions and asked Elle to be POA. RANDEE explained that this worker understands that pt is not in the mind set to make rational decisions at this time and that even if pt is alert and orientated, pt is pink slipped and does, by law, have to go to psych hospital. RANDEE explained that [facility], Crisis unit, is working on placement for pt and Tatyana is the worker on pt's case today. RANDEE provided Barbara with Tatyana's direct number encouraged her to call Tatyana. Plan: Crisis working on psych placement for pt Kayy Vegas SMOKING PIPE MAKER, DECORATIVE ENGRAVER
[2018-06-07 10:00] VITALS: BP 132/66; PULSE 75; PULSE 79; RESP 18; TEMP 37; O2SAT 100
--- NOTE | 2018-06-07 11:18 | NURSING ---
pt and friend updated about [facility] declining her for admission and that they are at this time requesting a full psych eval and that crisis is returning around noon to do a reeval-pt is mostly non verbal (did ask me to quit talking during assesment @ 1000 and had no comments for this update-looking straight ahead, has eaten nothing this am although friend has offerred numerous things-
--- NOTE | 2018-06-07 11:20 | CASEMGMT ---
Social Work Note SW spoke with Tatyana with Crisis who states she hasn't began looking for any additional hospitals yet for pt but will be at [facility] around 12:30pm and will continue to work on placement for pt. Kayy Vegas ENTERPRISE SYSTEMS ADMINISTRATOR, EXPOSURE MACHINE OPERATOR
--- NOTE | 2018-06-07 13:09 | NURSING ---
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 what is your mission-pt will not lay in bed or sit in recliner-she sits in an armed staright chair, refusing food/water-friend feels she is in survival mode
--- NOTE | 2018-06-07 15:10 | PN_ITS ---
Patient Problems: Active and Suspected Problems (Last Updated 06/05/18 @ 03:35 by Julio Cesar Whelan MD) Transient global amnesia (Suspected) Subjective: Chief complaint: Follow-up after admission for probable acute psychosis. Patient seen and examined. No acute events overnight. This morning, patient does not want to talk. She is silent and not interested in talking. Looks depressed. According to her close friend, last night patient was able to eat and drink and she did okay. She was able to sleep. Her vital signs are stable. - Physical Exam General: Alert, Oriented x3, No apparent distress HEENT: Atraumatic, PERRLA, EOMI, Normocephalic Oral: Moist Mucosa, No Gingival or Mucosal Lesions/ Ulcerations Neck: Supple, No JVD, Negative Carotid Bruits, Trachea Midline, Thyroid Normal Size and Texture Lungs: Clear to auscultation, Normal air movement, No rhonchi, No wheeze, No rales Cardiovascular: Regular rate, Regular Rhythm, Normal S1, Normal S2, PMI Normal Abdomen: Bowel Sounds Present, Soft, Non Tender, Non-Distended, No Hepato- splenomegaly Extremities: No clubbing, No cyanosis, No edema Skin: No rashes, No breakdown Lymphatic: No Cervical, Supraclavicular, or Inguinal Adenopathy Neurological: Cranial nerves II-XII grossly intact, Neuro grossly intact Psych/Mental Status: Flat Affect, Depressed Vital Signs Temp Pulse Resp BP Pulse Ox 98.6 F 75 18 132/66 H 100 06/07/18 10:00 06/07/18 10:00 06/07/18 10:00 06/07/18 10:00 06/07/18 10:00 Oxygen Delivery Method Room Air Weight: 143 lb 15.39 oz Body Mass Index (BMI) 21.5 Intake and Output for Last 24 Hours 06/05/18 06/06/18 06/07/18 23:59 23:59 23:59 Intake Total 150 / 150 0 / 0 120 / 120 Output Total 0 / 0 Balance 150 / 150 0 / 0 120 / 120 Medical Necessity - Tobacco Use Smoking Status: Never smoker Assessment/Plan This is a 67 years old female patient who was reported missing from [place], found in an Oil field in [place]. Initially, the working differential diagnosis is transient global amnesia and she was found to be in acute psychosis. #1 amnesia/confusion/Probable acute psychosis: Patient remained not interested in talking or communicating this morning. CT scan brain showed no acute findings. Chest x-ray, EKG and routine blood work was unremarkable. Patient has no focal deficit on physical examination. Urine drug screen was negative. Blood alcohol level was less than 3. LFT, ammonia, vitamin B12 and TSH were normal. Chest x-ray showed no acute findings. MRI ordered but patient refused. Neurology consulted who also recommended MRI but again patient refused. Patient was evaluated by mental health crisis and recommended inpatient admission to psychiatric facility. Awaiting bed availability at psychiatric facility for treatment of probable acute psychosis. #2 DVT prophylaxis: Subcu Lovenox. This note was generated with [employer] dictation software. It may contain incorrect words, spelling, and punctuation that were not noted in checking the note before signing. Code Visit OBSV E&M: 75772 Subsequent observation care L2
--- NOTE | 2018-06-07 17:40 | CASEMGMT ---
Social Work Note RANDEE received message from pt's niece Elle to call her back. RANDEE called Elle, explained that melanie is still working on placement for pt. Elle states melanie is able to call her as she has been calling hospitals as well. Elle asked about this worker being notary for POA. RANDEE informed Elle that pt is not in the right mind to complete POA paperwork at this time and this worker is not a notary. RANDEE informed Charge Nurse that Maddie from Crisis will be working on psych placement and per Elle, they are able to call her if needed as she has also been calling hospitals. Plan: [facility] to continue to work on psych placement for pt Kayy Vegas CLOTH DESIGNER, BREAST WORKER
--- NOTE | 2018-06-07 18:25 | NURSING ---
Pt remains sitting up in chair beside bed refusing this RN to do assessment or vital signs. Pt's friend remains at bedside. When asked if she needs anything pt shakes head no, but will not speak.
[2018-06-07 19:05] VITALS: BP 109/51; PULSE 80; RESP 16; TEMP 36.9; O2SAT 100
--- NOTE | 2018-06-07 20:20 | NURSING ---
Maddie Montez here from Crisis. Working with [facility] in [place] about bout accepting pt. at this time.
--- NOTE | 2018-06-07 21:43 | NURSING ---
Report given to Tomeka at [facility]
--- NOTE | 2018-06-07 21:58 | NURSING ---
Pt. Left with [facility] at this time.
--- NOTE | 2018-06-08 11:53 | PCM.DC.SUM ---
Discharge Date and Diagnosis Date of Admission: 06/05/18 Date of Discharge: 06/07/18 - Primary Discharge Diagnosis Probable acute psychosis. Hospital Course and Treatment Imaging Results: Clinical Impression(s) from Imaging Studies Chest X-Ray 06/04/18 00:35 IMPRESSION: COPD. No pulmonary edema, congestive heart failure or confluent pneumonia. Electronically Signed: Sara Pérez MD at 0:54 EDT , Service support , Brain CT 06/04/18 23:41 IMPRESSION: Chronic involutional changes of the brain. There is no acute intracranial pathology. Electronically Signed: Sara Pérez MD at 2:37 EDT , Service support , Consultations 06/05/18 13:43 Consult: Mental Health/Crisis Routine Reason for consult?: Patient was missing, found in an [place] in [place]. She is refusing to do MRI. Neurology suspected psychiatric illness. Date Notified:: 06/05/18 Time notified:: 13:48 Dr. Clayton, neurology. Operations: None Procedures: EKG Summary of Care Provided: The patient is a 67 year old F admitted to the hospital after she was reported missing from [place] and she was found in an oil field in [place]. She was admitted as probable case of transient global amnesia. Initially, there was a concern that she may have acute a stroke although there was no evidence of focal deficit on physical examination. CT scan brain showed no acute findings. Her routine blood work was unremarkable. Her LFT and ammonia were normal. TSH was normal, B12 was elevated. Urinalysis showed no evidence of acute cystitis. Urine drug screen was negative. Blood alcohol level was less than 3. EKG revealed no acute ischemic changes or cardiac arrhythmias. Patient had no focal deficit on examination and her NIH stroke scale was 0. During this hospital stay, patient was talking to us, not communicating, stubborn and does not want to identify herself, say her name although she was talking coherently and appropriately from time to time. I tried multiple times to make him talk about what started on but she is refusing. She refused to do the MRI to confirm that there is no stroke. Neurology consulted and stated that this is unlikely to be due to transient global amnesia and stroke is unlikely this time. While in the hospital, patient showed abnormal behavior and on one night, she entered other patient's rooms and she was agitated and combative. There was a close friend of the patient who stated that the patient has been having issues with sleeping problems over the last year. It was clearly that the patient had some early features in the past and reportedly, she had treatment with electroconvulsive therapy although patient denied any history of psychiatric illness or electroconvulsive therapy. Patient was seen and evaluated by mental health crisis and recommended inpatient psychiatric admission for evaluation and treatment. Patient was transferred to psychiatric facility for evaluation and treatment of acute psychosis. Subjective: Patient was seen and examined on June 07, 2018. - Physical Exam General: Alert, Cooperative, No apparent distress HEENT: Atraumatic, PERRLA, EOMI, Normocephalic Oral: Moist Mucosa, No Gingival or Mucosal Lesions/ Ulcerations Neck: Supple, No JVD, Negative Carotid Bruits, Trachea Midline, Thyroid Normal Size and Texture Lungs: Clear to auscultation, Normal air movement, No rhonchi, No wheeze, No rales Cardiovascular: Regular rate, Regular Rhythm, Normal S1, Normal S2, PMI Normal Abdomen: Bowel Sounds Present, Soft, Non Tender, Non-Distended, No Hepato-splenomegaly Extremities: No clubbing, No cyanosis, No edema Skin: No rashes, No breakdown Lymphatic: No Cervical, Supraclavicular, or Inguinal Adenopathy Neurological: Cranial nerves II-XII grossly intact, Motor Exam 5/5 strength throughout Psych/Mental Status: Flat Affect, Depressed Vital Signs Temp Pulse Resp BP Pulse Ox 98.4 F 80 16 109/51 L 100 06/07/18 19:05 06/07/18 19:05 06/07/18 19:05 06/07/18 19:05 06/07/18 19:05 Oxygen Delivery Method Room Air Weight: 143 lb 15.39 oz Body Mass Index (BMI) 21.5 Intake and Output for Last 24 Hours 06/06/18 06/07/18 06/08/18 23:59 23:59 23:59 Intake Total 0 / 0 360 / 360 Output Total 0 / 0 Balance 0 / 0 360 / 360 Home Medications: Medications to take at Discharge NK 06/04/18 Primary Care Physician: Care Physician,No Primary [Primary Care Provider] - Disposition: Psych Hospital or Unit Minutes spent on discharge:: 25 Patient Condition:: Stable Medical Necessity - Tobacco Use Smoking Status: Never smoker Meaningful Use Info Meaningful Use Diagnoses (Choose all that apply): None applicable Code Visit OBSV E&M: 77384 Observation care discharge
--- NOTE | 2018-06-08 11:59 | DS.PCM_ITS ---
Discharge Date and Diagnosis Date of Admission: 06/05/18 Date of Discharge: 06/07/18 - Primary Discharge Diagnosis Probable acute psychosis. Hospital Course and Treatment Imaging Results: Clinical Impression(s) from Imaging Studies Chest X-Ray 06/04/18 00:35 IMPRESSION: COPD. No pulmonary edema, congestive heart failure or confluent pneumonia. Electronically Signed: Sara Pérez MD at 0:54 EDT , Service support , Brain CT 06/04/18 23:41 IMPRESSION: Chronic involutional changes of the brain. There is no acute intracranial pathology. Electronically Signed: Sara Pérez MD at 2:37 EDT , Service support , Consultations 06/05/18 13:43 Consult: Mental Health/Crisis Routine Reason for consult?: Patient was missing, found in an Oil field in [place]. She is refusing to do MRI. Neurology suspected psychiatric illness. Date Notified:: 06/05/18 Time notified:: 13:48 Dr. Clayton, neurology. Operations: None Procedures: EKG Summary of Care Provided: The patient is a 67 year old F admitted to the hospital after she was reported missing from [place] and she was found in an oil field in [place]. She was admitted as probable case of transient global amnesia. Initially, there was a concern that she may have acute a stroke although there was no evidence of focal deficit on physical examination. CT scan brain showed no acute findings. Her routine blood work was unremarkable. Her LFT and ammonia were normal. TSH was normal, B12 was elevated. Urinalysis showed no evidence of acute cystitis. Urine drug screen was negative. Blood alcohol level was less than 3. EKG revealed no acute ischemic changes or cardiac arrhythmias. Patient had no focal deficit on examination and her NIH stroke scale was 0. During this hospital stay, patient was talking to us, not communicating, stubborn and does not want to identify herself, say her name although she was talking coherently and appropriately from time to time. I tried multiple times to make him talk about what started on but she is refusing. She refused to do the MRI to confirm that there is no stroke. Neurology consulted and stated that this is unlikely to be due to transient global amnesia and stroke is unlikely this time. While in the hospital, patient showed abnormal behavior and on one night, she entered other patient's rooms and she was agitated and combative. There was a close friend of the patient who stated that the patient has been having issues with sleeping problems over the last year. It was clearly that the patient had some early fea tures in the past and reportedly, she had treatment with electroconvulsive therapy although patient denied any history of psychiatric illness or electroconvulsive therapy. Patient was seen and evaluated by mental health crisis and recommended inpatient psychiatric admission for evaluation and treatment. Patient was transferred to psychiatric facility for evaluation and treatment of acute psychosis. Subjective: Patient was seen and examined on June 07, 2018. - Physical Exam General: Alert, Cooperative, No apparent distress HEENT: Atraumatic, PERRLA, EOMI, Normocephalic Oral: Moist Mucosa, No Gingival or Mucosal Lesions/ Ulcerations Neck: Supple, No JVD, Negative Carotid Bruits, Trachea Midline, Thyroid Normal Size and Texture Lungs: Clear to auscultation, Normal air movement, No rhonchi, No wheeze, No rales Cardiovascular: Regular rate, Regular Rhythm, Normal S1, Normal S2, PMI Normal Abdomen: Bowel Sounds Present, Soft, Non Tender, Non-Distended, No Hepato-splenomegaly Extremities: No clubbing, No cyanosis, No edema Skin: No rashes, No breakdown Lymphatic: No Cervical, Supraclavicular, or Inguinal Adenopathy Neurological: Cranial nerves II-XII grossly intact, Motor Exam 5/5 strength throughout Psych/Mental Status: Flat Affect, Depressed Vital Signs Temp Pulse Resp BP Pulse Ox 98.4 F 80 16 109/51 L 100 06/07/18 19:05 06/07/18 19:05 06/07/18 19:05 06/07/18 19:05 06/07/18 19:05 Oxygen Delivery Method Room Air Weight: 143 lb 15.39 oz Body Mass Index (BMI) 21.5 Intake and Output for Last 24 Hours 06/06/18 06/07/18 06/08/18 23:59 23:59 23:59 Intake Total 0 / 0 360 / 360 Output Total 0 / 0 Balance 0 / 0 360 / 360 Home Medications: Medications to take at Discharge NK 06/04/18 Primary Care Physician: Care Physician,No Primary [Primary Care Provider] - Disposition: Psych Hospital or Unit Minutes spent on discharge:: 25 Patient Condition:: Stable Medical Necessity - Tobacco Use Smoking Status: Never smoker Meaningful Use Info Meaningful Use Diagnoses (Choose all that apply): None applicable Code Visit OBSV E&M: 15676 Observation care discharge
== END 2018-06-07 21:59 ==
LOC: ED 06-05 03:19 → MS2 06-05 03:25
PROVIDERS: Admitting Provider Hospitalist; Emergency Provider Emergency Medicine; Referring Provider Hospitalist; Visit Provider Hospitalist
DX: F23 Brief psychotic disorder (principal)
CPT/HCPCS: 36415; 70450; 71045; 80053; 80307; 80320; 81001; 82140; 82607; 84443; 85025; 96372; 99218; 99285; A4216; G0378; G0480